=== PATIENT | female | born 1965 | race Caucasian/White ===

== ENCOUNTER 2016-11-25 08:02 | Emergency (ER) | payer OTHER ==
[~2016-11-25] VITALS: Ht 170.2 cm; Wt 90.7 kg
[~2016-11-25 08:02] MED LIST: AMLODIPINE BESYL5 MG PO; EFFEXOR XR75 MG PO; ESTRADIOL0.5 MG PO; LOSARTAN POTAS100 MG PO; NORCO 5-325 TA1 EACH PO; OMEPRAZOLE20 MG PO; TOPROL XL200 MG PO; VENLAFAXINE HCL75 MG PO
--- OUTSIDE RECORDS SUMMARY | 2016-11-25 08:25 | XMS ---
Demographics + + + | Address | [address] | | | [place] [address] | + + + | Preferred Language | Unknown | + + + | Marital Status | Unknown | + + + | Faith Affiliation | Unknown | + + + | Race | Unknown | + + + | Ethnic Group | Unknown | + + + Author + + + | Author | [facility] | + + + | Organization | [facility] | + + + | Address | [address] | | | [place] [address] | + + + | Phone | | + + + Care Team Providers + + + + | Care Time Study Statistician Name | Role | Phone | + + + + Unavailable | Unavailable | + + + + PROBLEMS +---------+ + + +--------+ + + | Type | Condition | ICD9-CM | [id number] | Onset | Condition | SNOMED | | | | Code | Code | Dates | Status | Code | +---------+ + + +--------+ + + | Problem | Hormone | | Z79.890 | | Active | 051208879 | | | replacemen | | | | | | | | t therapy | | | | | | +---------+ + + +--------+ + + | Problem | Screening | Z13.89 | | | Active | 651699149 | | | for | | | | | | | | alcoholism | | | | | | +---------+ + + +--------+ + + | Problem | Hypertensi | I11.9 | | | Active | 53142194 | | | ve | | | | | | | | arterioscl | | | | | | | | erotic | | | | | | | | cardiovasc | | | | | | | | ular | | | | | | | | disease | | | | | | +---------+ + + +--------+ + + | Problem | Depression | | F32.9 | | Active | 237870389 | +---------+ + + +--------+ + + | Problem | Gastroesop | K21.9 | | | Active | 830822526 | | | hageal | | | | | | | | reflux | | | | | | | | disease | | | | | | | | without | | | | | | | | esophagiti | | | | | | | | s | | | | | | +---------+ + + +--------+ + + | Problem | Right leg | S89.91XA | | | Active | 6500553725 | | | injury | | | | | 2150251 | +---------+ + + +--------+ + + | Problem | Essential | I10 | | | Active | 02276296 | | | hypertensi | | | | | | | | on with | | | | | | | | goal blood | | | | | | | | pressure | | | | | | | | less than | | | | | | | | 140/90 | | | | | | +---------+ + + +--------+ + + ALLERGIES Unknown Allergies SOCIAL HISTORY No smoking Hx information available PLAN OF CARE VITAL SIGNS MEDICATIONS Unknown Medications RESULTS No Results PROCEDURES No Known procedures IMMUNIZATIONS No Known Immunizations"
--- OUTSIDE RECORDS SUMMARY | 2016-11-25 08:25 | XMS ---
Demographics + + + | Address | [address] | | | [place] [address] | + + + | Preferred Language | Unknown | + + + | Marital Status | Unknown | + + + | Druze Affiliation | Unknown | + + + | Race | Unknown | + + + | Ethnic Group | Unknown | + + + Author + + + | Author | [facility] | + + + | Organization | [facility] | + + + | Address | [address] | | | [place] [address] | + + + | Phone | | + + + Care Team Providers + + + + | Care Cabinetmaker Apprentice Name | Role | Phone | + + + + Unavailable | Unavailable | + + + + PROBLEMS + + + + + + + + | Type | Condition | ICD9-CM | [id number] | Onset | Condition | SNOMED | | | | Code | Code | Dates | Status | Code | + + + + + + + + | Assessment | Chronic | | G61.81 | Jun, | Active | [id number] | | | inflammato | | | 2016 | | | | | ry | | | | | | | | demyelinat | | | | | | | | ing | | | | | | | | polyneurit | | | | | | | | is | | | | | | + + + + + + + + | Problem | Hormone | | Z79.890 | | Active | 649516617 | | | replacemen | | | | | | | | t therapy | | | | | | + + + + + + + + | Assessment | Hypertensi | I11.9 | | 21 Jun, | Active | 29981520 | | | ve | | | 2016 | | | | | arterioscl | | | | | | | | erotic | | | | | | | | cardiovasc | | | | | | | | ular | | | | | | | | disease | | | | | | + + + + + + + + | Problem | Screening | Z13.89 | | | Active | 695304810 | | | for | | | | | | | | alcoholism | | | | | | + + + + + + + + | Problem | Hypertensi | I11.9 | | | Active | 21461565 | | | ve | | | | | | | | arterioscl | | | | | | | | erotic | | | | | | | | cardiovasc | | | | | | | | ular | | | | | | | | disease | | | | | | + + + + + + + + | Problem | Depression | | F32.9 | | Active | 896813120 | + + + + + + + + | Problem | Gastroesop | K21.9 | | | Active | 395283305 | | | hageal | | | | | | | | reflux | | | | | | | | disease | | | | | | | | without | | | | | | | | esophagiti | | | | | | | | s | | | | | | + + + + + + + + | Problem | Right leg | S89.91XA | | | Active | 3502427904 | | | injury | | | | | 1757802 | + + + + + + + + | Problem | Essential | I10 | | | Active | 66336083 | | | hypertensi | | | | | | | | on with | | | | | | | | goal blood | | | | | | | | pressure | | | | | | | | less than | | | | | | | | 140/90 | | | | | | + + + + + + + + ALLERGIES + + + + +--------+ | Substance | Reaction | Event Type | Date | Status | + + + + +--------+ | Tizanidine HCl | throat itchy, | Drug Allergy | Jun, | Active | | | swelling | | | | + + + + +--------+ | Lisinopril | cough | Drug Allergy | Jun, | Active | + + + + +--------+ | Diclofenac | throat itchy, | Drug Allergy | Jun, | Active | | Sodium | swelling | | | | + + + + +--------+ | Amlodipine | foggy, LE edema | Drug Allergy | Jun, | Active | | Besylate | | | | | + + + + +--------+ | tramadol | heart | Non Drug | Jun, | Active | | | palpitations | Allergy | | | + + + + +--------+ SOCIAL HISTORY No smoking Hx information available PLAN OF CARE VITAL SIGNS + + + + | Height | 67 in | 2016-07-14 | + + + + | Weight | 230.7 lbs | 2016-07-14 | + + + + | BMI | 36.13 kg/m2 | 2016-07-14 | + + + + | Heart Rate | 82 /min | 2016-07-14 | + + + + | Blood pressure systolic | 160 mm Hg | 2016-07-14 | + + + + | Blood pressure diastolic | 96 mm Hg | 2016-07-14 | + + + + MEDICATIONS + + + + + + + +--------+ | Medicati | Instruct | Dosage | Frequenc | Start | End Date | Duration | Status | | on | ions | | y | Date | | | | + + + + + + + +--------+ | Losartan | Orally | 1 tablet | 24h | 08 Sep, | | 30 | Active | | | Once a | | | 2016 | | day(s) | | | Potassiu | day | | | | | | | | m 100 MG | | | | | | | | + + + + + + + +--------+ | Gabapent | Orally | 1 | | 21 Jun, | | 30 days | Active | | in 100 | once a | capsule | | 2016 | | | | | MG | day at | | | | | | | | | night | | | | | | | + + + + + + + +--------+ | Omeprazo | Orally | 1 | 24h | | | 30 days | Active | | le 20 MG | Once a | capsule | | | | | | | | day | | | | | | | + + + + + + + +--------+ | Estrace | Orally | 1 tablet | 24h | Mar, | | 30 | Active | | 0.5 MG | Once a | | | 2016 | | day(s) | | | | day | | | | | | | + + + + + + + +--------+ | Venlafax | Orally | 1 tablet | 24h | | | | Active | | ine HCl | Once a | | | | | | | | 75 MG | day | | | | | | | + + + + + + + +--------+ | Toprol | Orally | 1 tablet | 24h | | | | Active | | XL 200 | Once a | | | | | | | | MG | day | | | | | | | + + + + + + + +--------+ RESULTS No Results PROCEDURES + + + + + | Procedure | Date Ordered | Related Diagnosis | Body Site | + + + + + | Est Level III | July 14, 2016 | | | | Intermediate | | | | + + + + + IMMUNIZATIONS No Known Immunizations"
--- OUTSIDE RECORDS SUMMARY | 2016-11-25 08:25 | XMS ---
Demographics + + + | Address | [address] | | | [place] [address] | + + + | Preferred Language | Unknown | + + + | Marital Status | Unknown | + + + | Gnosticism Affiliation | Unknown | + + + | Race | Unknown | + + + | Ethnic Group | Unknown | + + + Author + + + | Author | [facility] | + + + | Organization | [facility] | + + + | Address | [address] | | | [place] [address] | + + + | Phone | | + + + Care Team Providers + + + + | Care Agricultural Equipment Design Engineer Name | Role | Phone | + + + + Unavailable | Unavailable | + + + + PROBLEMS +---------+ + + +--------+ + + | Type | Condition | ICD9-CM | PCH55-[id number] | Onset | Condition | SNOMED | | | | Code | Code | Dates | Status | Code | +---------+ + + +--------+ + + | Problem | Hormone | | Z79.890 | | Active | 677970763 | | | replacemen | | | | | | | | t therapy | | | | | | +---------+ + + +--------+ + + | Problem | Screening | Z13.89 | | | Active | 670295241 | | | for | | | | | | | | alcoholism | | | | | | +---------+ + + +--------+ + + | Problem | Hypertensi | I11.9 | | | Active | 09453892 | | | ve | | | [...] | | F32.9 | | Active | 072162434 | +---------+ + + +--------+ + + | Problem | Gastroesop | K21.9 | | | Active | 792257152 | | | hageal | | | [...] | S89.91XA | | | Active | 6468567203 | | | injury | | | | | 9838332 | +---------+ + + +--------+ + + | Problem | Essential | I10 | | | Active | 53906102 | | | hypertensi | | | [...] +---------+ + + +--------+ + + ALLERGIES + + + + +--------+ | Substance | Reaction | Event Type | Date | Status | + + + + +--------+ | Tizanidine HCl | throat itchy, | Drug Allergy | Oct, | Active | | | swelling | | | | + + + + +--------+ | Losartan | foggy | Drug Allergy | Oct, | Active | | Potassium | | | | | + + + + +--------+ | Lisinopril | cough | Drug Allergy | Oct, | Active | + + + + +--------+ | Diclofenac | throat itchy, | Drug Allergy | Oct, | Active | | Sodium | swelling | | | | + + + + +--------+ | Amlodipine | VERONICA elizabeth edema | Drug Allergy | Oct, | Active | | Besylate | | | | | + + + + +--------+ | tramadol | heart | Non Drug | Oct, | Active | | | palpitations | Allergy | | | + + + + +--------+ SOCIAL HISTORY No smoking Hx information available PLAN OF CARE + +---------+ | Activity | Details | + +---------+ +---+ | | +---+ + + + | Follow Up | has f/u Reason:null | + + + VITAL SIGNS + + + + | Height | 67 in | 2016-11-10 | + + + + | Weight | 226.7 lbs | 2016-11-10 | + + + + | BMI | 35.50 kg/m2 | 2016-11-10 | + + + + | Heart Rate | 70 /min | 2016-11-10 | + + + + | Blood pressure systolic | 146 mm Hg | 2016-11-10 | + + + + | Blood pressure diastolic | 86 mm Hg | 2016-11-10 | + + + + MEDICATIONS + [...] | 1 | 24h | | | | Active | | le 20 MG | Once a | capsule | | | | | | | | day | | | | | | | + + + + + + + +--------+ | Duloxeti | Orally | 1 | 24h | 18 Oct, | | 30 | Active | | ne HCl | Once a | capsule | | 2016 | | day(s) | | | 30 MG | day | daily | | | | | | | | | for a | | | | | | | | | week | | | | | | | | | then two | | | | | | | | | | | | | | | | | | capsules | | | | | | | | | daily | | | | | | + + + + + + + +--------+ | Metoprol | | TAKE ONE | | | | 30 | Active | | ol | | TABLET | | | | | | | Succinat | | BY MOUTH | | | | | | | e ER | | ONCE | | | | | | | 200MG | | DAILY | | | | | | + + + + + + + +--------+ | Gabapent | Orally | 1 tablet | | | | 30 days | Active | | in 600 | once a | | | | | | [...] + + | Est Level III | Nov 10, 2016 | | | | Intermediate | | | | + + + + + IMMUNIZATIONS No Known Immunizations"
--- OUTSIDE RECORDS SUMMARY | 2016-11-25 08:25 | XMS ---
Demographics + + + | Address | [address] | | | [place] [address] | + + + | Preferred Language | Unknown | + + + | Marital Status | Unknown | + + + | Uatsdin Affiliation | Unknown | + + + | Race | Unknown | + + + | Ethnic Group | Unknown | + + + Author + + + | Author | [facility] | + + + | Organization | [facility] | + + + | Address | [address] | | | [place] [address] | + + + | Phone | | + + + Care Team Providers + + + + | Care Preschool Special Education Teacher Name | Role | Phone | + + + + Unavailable | Unavailable | + + + + PROBLEMS +---------+ + + +--------+ + + | Type | Condition | ICD9-CM | [id number] | Onset | Condition | SNOMED | | | | Code | Code | Dates | Status | Code | +---------+ + + +--------+ + + | Problem | Hormone | | Z79.890 | | Active | 273498264 | | | replacemen | | | | | | | | t therapy | | | | | | +---------+ + + +--------+ + + | Problem | Screening | Z13.89 | | | Active | 395812393 | | | for | | | | | | | | alcoholism | | | | | | +---------+ + + +--------+ + + | Problem | Hypertensi | I11.9 | | | Active | 19525379 | | | ve | | | [...] | | F32.9 | | Active | 909361750 | +---------+ + + +--------+ + + | Problem | Gastroesop | K21.9 | | | Active | 323257812 | | | hageal | | | [...] | S89.91XA | | | Active | 2321754996 | | | injury | | | | | 6351473 | +---------+ + + +--------+ + + | Problem | Essential | I10 | | | Active | 80493065 | | | hypertensi | | | [...] | throat itchy, | Drug Allergy | Aug, | Active | | | swelling | | | | + + + + +--------+ | Losartan | foggy | Drug Allergy | Aug, | Active | | Potassium | | | | | + + + + +--------+ | Lisinopril | cough | Drug Allergy | Aug, | Active | + + + + +--------+ | Diclofenac | throat itchy, | Drug Allergy | Aug, | Active | | Sodium | swelling | | | | + + + + +--------+ | Amlodipine | VERONICA elizabeth edema | Drug Allergy | Aug, | Active | | Besylate | | | | | + + + + +--------+ | tramadol | heart | Non Drug | Aug, | Active | | | palpitations | Allergy | | | + + + + +--------+ SOCIAL HISTORY No smoking Hx information available PLAN OF CARE + +---------+ | Activity | Details | + +---------+ +---+ | | +---+ + + + | Follow Up | 3 Months Reason:null | + + + VITAL SIGNS + + + + | Height | 67 in | 2016-09-21 | + + + + | Weight | 228.9 lbs | 2016-09-21 | + + + + | BMI | 35.85 kg/m2 | 2016-09-21 | + + + + | Temperature | 98.0 degrees Fahrenheit | 2016-09-21 | + + + + | Heart Rate | 91 /min | 2016-09-21 | + + + + | Blood pressure systolic | 148 mm Hg | 2016-09-21 | + + + + | Blood pressure diastolic | 105 mm Hg | 2016-09-21 | + + + + MEDICATIONS + + + + +--------+ + +--------+ | Medicati | Instruct | Dosage | Frequenc | Start | End Date | Duration | Status | | on | ions | | y | Date | | | | + + + + +--------+ + +--------+ | Toprol | Orally | 1 tablet | 24h | | | | Active | | XL 200 | Once a | | | | | | | | MG | day | | | | | | | + + + + +--------+ + +--------+ | Gabapent | Orally | 1 | | | | 30 days | Active | | in 300 | once a | capsule | | | | | | | MG | day at | | | | | | | | | night | | | | | | | + + + + +--------+ + +--------+ | Venlafax | Orally | 1 tablet | 24h | | | | Active | | ine HCl | Once a | | | | | | | | 75 MG | day | | | | | | | + + + + +--------+ + +--------+ | Omeprazo | Orally | 1 | 24h | | | | Active | | le 20 MG | Once a | capsule | | | | | | | | day | | | | | | | + + + + +--------+ + +--------+ RESULTS No Results PROCEDURES + + + + + | Procedure | Date Ordered | Related Diagnosis | Body Site | + + + + + | Est Level III | September 21, 2016 | | | | Intermediate | | | | + + + + + IMMUNIZATIONS No Known Immunizations"
--- OUTSIDE RECORDS SUMMARY | 2016-11-25 08:25 | XMS ---
Demographics + + + | Address | [address] | | | [place] [address] | + + + | Preferred Language | Unknown | + + + | Marital Status | Unknown | + + + | Mandaeism Affiliation | Unknown | + + + | Race | Unknown | + + + | Ethnic Group | Unknown | + + + Author + + + | Author | [facility] | + + + | Organization | [facility] | + + + | Address | [address] | | | [place] [address] | + + + | Phone | | + + + Care Team Providers + + + + | Care Manager Rn Case Name | Role | Phone | + + + + Unavailable | Unavailable | + + + + PROBLEMS +---------+ + + +--------+ + + | Type | Condition | ICD9-CM | [id number] | Onset | Condition | SNOMED | | | | Code | Code | Dates | Status | Code | +---------+ + + +--------+ + + | Problem | Hormone | | Z79.890 | | Active | 538635627 | | | replacemen | | | | | | | | t therapy | | | | | | +---------+ + + +--------+ + + | Problem | Screening | Z13.89 | | | Active | 534136366 | | | for | | | | | | | | alcoholism | | | | | | +---------+ + + +--------+ + + | Problem | Hypertensi | I11.9 | | | Active | 84312062 | | | ve | | | [...] | | F32.9 | | Active | 017247161 | +---------+ + + +--------+ + + | Problem | Gastroesop | K21.9 | | | Active | 549111320 | | | hageal | | | [...] | S89.91XA | | | Active | 1017922714 | | | injury | | | | | 6738564 | +---------+ + + +--------+ + + | Problem | Essential | I10 | | | Active | 99316178 | | | hypertensi | | | [...] | throat itchy, | Drug Allergy | July, | Active | | | swelling | | | | + + + + +--------+ | Losartan | foggy | Drug Allergy | July, | Active | | Potassium | | | | | + + + + +--------+ | Lisinopril | cough | Drug Allergy | July, | Active | + + + + +--------+ | Diclofenac | throat itchy, | Drug Allergy | July, | Active | | Sodium | swelling | | | | + + + + +--------+ | Amlodipine | VERONICA elizabeth edema | Drug Allergy | July, | Active | | Besylate | | | | | + + + + +--------+ | tramadol | heart | Non Drug | July, | Active | | | palpitations | Allergy | | | + + + + +--------+ SOCIAL HISTORY No smoking Hx information available PLAN OF CARE + +---------+ | Activity | Details | + +---------+ +---+ | | +---+ + + + | Follow Up | 4 Weeks Reason:null | + + + VITAL SIGNS + + + + | Height | 67 in | 2016-08-18 | + + + + | Weight | 222.7 lbs | 2016-08-18 | + + + + | BMI | 34.88 kg/m2 | 2016-08-18 | + + + + | Heart Rate | 87 /min | 2016-08-18 | + + + + | Blood pressure systolic | 155 mm Hg | 2016-08-18 | + + + + | Blood pressure diastolic | 99 mm Hg | 2016-08-18 | + + + + MEDICATIONS + [...] + + | Est Level III | August 18, 2016 | | | | Intermediate | | | | + + + + + IMMUNIZATIONS No Known Immunizations"
[2016-11-25] MEDS ORDERED: OXYCODONE HCL5 M1 PO (09:33)
[2016-11-25] MEDS ORDERED: IBUPROFEN800 MG PO (09:33)
[2016-11-25] MEDS ORDERED: ZOFRAN ODT4 MG SL (09:33)
== END 2016-11-25 09:50 | disposition home or self-care (01) ==
LOC: ED 08:02
DX: S93.401A Sprain of unspecified ligament of right ankle, initial encounter (principal); I10 Essential (primary) hypertension; Z87.891 Personal history of nicotine dependence; Z90.710 Acquired absence of both cervix and uterus; Z88.5 Allergy status to narcotic agent; Z79.899 Other long term (current) drug therapy; W18.30XA Fall on same level, unspecified, initial encounter
CPT/HCPCS: 73610; 99283

== ENCOUNTER 2017-05-17 07:50 | Day surgery (SDC) | payer OTHER ==
[~2017-05-17] VITALS: Ht 170.2 cm; Wt 81.7 kg
[~2017-05-17 07:50] MED LIST changes: +GABAPENTIN600 MG PO; +IBUPROFEN800 MG PO; +OXYCODONE HCL5 M1 PO; +ZOFRAN ODT4 MG SL
[2017-05-17] MEDS ORDERED: DULOXETINE HCL60 MG PO (08:16)
--- NOTE | 2017-05-17 11:14 | NUR ---
05/17/17 1114 Antoinette Valdez 1100 PT ARRIVED WITH ORAL AIRWAY IN PLACE, RESP EVEN AND UNLABORED PT REACTIVE. REPORT FROM CUSTOMER SUPPORT EXECUTIVE.
--- NOTE | 2017-05-17 11:50 | NUR ---
ICED WATER AND PUDDING GIVEN. SPOUSE @ BS. CALL LIGHT W/IN REACH. PT DENIES ADD'L NEEDS.
[2017-05-17] MEDS ORDERED: NORCO 10-325 T1 EACH PO (12:30)
--- NOTE | 2017-05-17 14:49 | NUR ---
1245: PATIENT DENIED PAIN. VS CHECKED. IV SITE WNL. RIGHT ANKLE ELEVATED ON PILLOW. ICE PACK TO RIGHT ANKLE. C/O NUMBNESS IN RIGHT TOES. ABLE TO WIGGLE RIGHT TOES. RIGHT TOES WARM AND PINK. PATIENT STATES READY TO GO HOME. 1300: IV DC'D WNL, TIP INTACT. DISCHARGE INSTRUCTIONS GIVEN TO PATIENT AND . PATIENT ASSISTED OOB. ASSISTED PATIENT TO GET DRESSED. PATIENT DISCHARGED TO HOME WITH VIA WHEELCHAIR.
--- NOTE | 2017-05-24 07:09 | OR ---
[facility] [address], [place] [address] Signed DATE OF OPERATION: 05/17/2017 SURGEON: Clari Smith MD PREOPERATIVE DIAGNOSIS: Osteochondral lesion medial talus, right. POSTOPERATIVE DIAGNOSIS: Osteochondral lesion medial talus, right. PROCEDURE: Ankle arthroscopy with debridement of osteochondral lesion and microfracture. ANESTHESIA: General. SPECIMENS AND COMPLICATIONS: There were no specimens or complications. TOURNIQUET TIME: About 40 minutes. WHAT WAS DONE: The patient was taken to the operating room. After anesthesia was induced and airway secured, the patient was positioned, prepped and draped in a routine sterile fashion. We outlined the vascular markings of neurovascular bundle about the ankle with a skin marking pen and then the leg was exsanguinated with an Esmarch bandage. Pneumatic tourniquet was then inflated to 300 mmHg pressure on the upper thigh. The patient was then placed in noninvasive distraction (Arthrex) and the ankle was distracted. Markings medially were used as a guide and we passed an 18-gauge needle anteromedial directly into the ankle joint. We then insufflated the ankle with about 15 mL of saline. We then made a small anteromedial portal incising only the skin and then using a blunt trocar technique to enter the ankle joint, which was confirmed by the free flow of fluid back out of the cannula. We then assembled the arthroscope and gently irrigated the ankle. Then using transillumination and being mindful of the vascular markings, we had previously outlined, an anterolateral portal was created again incising only the skin and using a blunt trocar technique. We then introduced a small probe. The dome of the talus was completely unremarkable in the midportion and laterally. The tibial plafond was similarly unremarkable. After doing the diagnostic arthroscopy, there was a fair amount of synovitis in the anterolateral gutter and over the anterior aspect of the Electronically Signed By: CLARI SMITH MD 05/24/17 0709 PATIENT NAME: DAVID PANDEY OPERATIVE REPORT DATE OF : 69 REPORT #: [id number] PHYSICIAN: CLARI SMITH MD PCP: ANALY MONROE DO REPORT IS CONFIDENTIAL AND NOT TO BE RELEASED WITHOUT AUTHORIZATION [facility] [address], [place] [address] Signed ankle joint. We did insert a motorized shaver, and do a limited synovectomy. There also appeared to be a [place] lesion anterolaterally and this was also removed with the motorized shaver. We then switched the arthroscopy cannula to the anterolateral portal and introduced a probe anteromedially. We were able to identify the area of the osteochondral lesion and indeed there was a large cartilaginous flap that we could invert and was caught in the ankle joint itself. We then used a small curette to finish this flap tear and then introduced the motorized shaver to morselize and remove the cartilage fragments. We then used an angled pick to microfracture the base of the osteochondral lesion. The ankle joint was then copiously irrigated and drained. The portals were closed and a sterile dressing applied. The patient was awakened to recovery room where she arrived in stable condition. Counts were correct and antibiotic protocols were followed. Clari Smith MD WFB/MODL /[id number] Copies: ~ Electronically Signed By: CLARI SMITH MD 05/24/17 0709 PATIENT NAME: DAVID PANDEY OPERATIVE REPORT DATE OF : 69 REPORT #: [id number] PHYSICIAN: CLARI SMITH MD PCP: ANALY MONROE DO REPORT IS CONFIDENTIAL AND NOT TO BE RELEASED WITHOUT AUTHORIZATION
== END 2017-05-17 13:00 | disposition home or self-care (01) ==
LOC: OPS 07:50 → DS 07:50 → OPS 09:30
PROVIDERS: Orthopaedic Surgery
PROC: 0SBF4ZZ Excision of Right Ankle Joint, Percutaneous Endoscopic Approach (ICD-10-PCS; principal; 2017-05-17 09:30)
DX: M93.271 Osteochondritis dissecans, right ankle and joints of right foot (principal); M65.871 Other synovitis and tenosynovitis, right ankle and foot; I10 Essential (primary) hypertension; Z23 Encounter for immunization; Z88.8 Allergy status to other drugs, medicaments and biological substances; Z79.899 Other long term (current) drug therapy
CPT/HCPCS: 01480; 90674; J0690; J1100; J1885; J2250; J2405; J2704; J3010; J7120

== ENCOUNTER 2017-11-17 18:40 | Emergency (ER) | payer OTHER ==
[~2017-11-17] VITALS: Ht 170.2 cm; Wt 81.6 kg
[~2017-11-17 18:40] MED LIST changes: +DULOXETINE HCL60 MG PO; +NORCO 10-325 T1 EACH PO
== END 2017-11-17 21:37 | disposition home or self-care (01) ==
LOC: ED 18:40
DX: F32.9 Major depressive disorder, single episode, unspecified (principal); I10 Essential (primary) hypertension; Z88.5 Allergy status to narcotic agent; Z79.899 Other long term (current) drug therapy
CPT/HCPCS: 80053; 80176; 81001; 84443; 85025; 99283; G0480

== ENCOUNTER 2022-03-06 15:30 | Emergency (ER) | payer OTHER ==
[~2022-03-06] VITALS: Ht 170.2 cm; Wt 87.1 kg
--- OUTSIDE RECORDS SUMMARY | 2022-03-06 17:03 | XMS ---
PreManage Notification: DAVID PANDEY Security Track Helper Events No recent Security Events currently on file CRITERIA MET - [facility] - 2 Visits in 30 Days - Group Notification - [facility] CARE PROVIDERS There are no care providers on record at this time. Deni has no Care Guidelines for this patient. Danica VISIT COUNT (12 MO.) 3 [facility] [place] [facility] NOTE: Visits indicate total known visits. ED/C VISIT TRACKING (12 MO.) 03/06/2022 15:31 [facility] [place] TYPE: Emergency COMPLAINT: - SOB,DIZZY,CHILLS 02/27/2022 16:29 [facility] [place] TYPE: Emergency COMPLAINT: - SOB, DIZZINESS, UPPER ABD PRESSURE, COUGHING BLOOD 02/19/2022 16:37 [facility] [place] TYPE: Emergency COMPLAINT: - MEDICAL CLEARANCE INPATIENT VISIT TRACKING (12 MO.) No inpatient visits to display in this time frame [email or web address]
== END 2022-03-06 19:20 | disposition home or self-care (01) ==
LOC: ED 15:30
DX: U07.1 COVID-19 (principal); I10 Essential (primary) hypertension; Z88.5 Allergy status to narcotic agent; Z79.899 Other long term (current) drug therapy
CPT/HCPCS: 87502; 99283; C9803; U0003

== ENCOUNTER 2023-04-18 06:12 | Day surgery (SDC) | payer OTHER ==
[2023-04-12 10:11] VITALS: BP 140/99
[~2023-04-18] VITALS: Ht 170.2 cm; Wt 90.9 kg
[~2023-04-18 06:12] MED LIST changes: +LYRICA100 MG PO; +PROZAC10 MG PO; +REMERON15 M1 PO
[2023-04-18 06:24] VITALS: BP 139/70
[2023-04-18] MEDS ORDERED: WOMEN'S DAILY1 EACH PO (06:27)
[2023-04-18 07:36] VITALS: BP 159/78
--- NOTE | 2023-04-18 08:08 | NUR ---
04/18/23 0808 Sylvain Nation PATIENT ARRIVED AT 0800. PATIENT AWAKE AND TALKING. O2 IS 93% ON ROOM AIR. PRIOR TO ARRIVAL PATIENT WAS 94% ON ROOM AIR WHEN MONITORED IN THE ENDO ROOM. PATIENT COMPLAINS OF SLIGHT CRAMPING. ENCOURAGED TO PASS GAS AT THIS TIME. DENIES NAUSEA.
[2023-04-18 08:43] VITALS: BP 111/80
--- NOTE | 2023-04-18 10:09 | OR ---
[facility] [address] [place], [place] [address] Signed DATE OF OPERATION: 04/18/2023 SURGEON: Dayan Leon MD PREOPERATIVE DIAGNOSES: 1. Diarrhea with a history of treated microscopic lymphocytic colitis. 2. Father with colon cancer in his 60s. POSTOPERATIVE DIAGNOSES: 1. Minimal to moderate pandiverticulosis. 2. 3 mm internal anal skin tag x1. PROCEDURE: Colonoscopy with random cold biopsy. ESTIMATED BLOOD LOSS: None. INDICATIONS: Dori is a 58-year-old obese female with a history of polysubstance abuse in the past along with anxiety and schizoaffective disorder. She is known to have some alcohol-related polyneuropathy as well as being prediabetic. She was having diarrhea in [address] Ag Medina performed her upper and lower endoscopy. She had microscopic lymphocytic colitis. She responded well to her treatment. About a year ago, she went through drug rehab. She has now been off the alcohol and methamphetamines. She has been helping a lot at her faith. She has been under a lot of stress. She said the diarrhea returned several months ago. She also knows that her father had colon cancer in his 60s. Otherwise, no family history of inflammatory bowel disease. She was asked to see me as a local general surgeon to have colonoscopy and multiple biopsies. I met with Dori in the office. I gave her a pamphlet on colonoscopy. We had reviewed the nature of the test. There is risk including, but not limited to gas bloating, crampy abdominal pain, bleeding, perforation requiring surgery, and missed diagnosis. We also reviewed the written instructions for the bowel prep line by line. Given her body mass index, a very full round face with a heavy neck, chest, and abdomen along with her significant medical issues, we asked that she have monitored anesthesia care with propofol infusion. That proved to be a jordan decision as our anesthesia provider was able to apply constant airway management. She had expressed understanding and wished to proceed. DESCRIPTION OF PROCEDURE: Electronically Signed By: DAYAN LEON MD 04/18/23 1009 PATIENT NAME: DORI PANDEY OPERATIVE REPORT DATE OF : 69 REPORT #: [id number] PHYSICIAN: DAYAN LEON MD PCP: CLEVELAND SHER PA-C REPORT IS CONFIDENTIAL AND NOT TO BE RELEASED WITHOUT AUTHORIZATION [facility] [address] [place] [id number] Signed Dori was taken into our endoscopy suite and placed in the left lateral decubitus position. She was given monitored anesthesia care with propofol infusion per our nurse corrosion control engineer. A digital rectal exam was performed. This was unremarkable. There were no external hemorrhoids. She has good sphincter tone. There were no masses. The adult colonoscope was introduced and advanced all around into the cecum under direct visualization of the camera. She did need some extra propofol. She needed some abdominal compression as well. She needed constant airway management. Her prep was good. We could easily see the appendiceal orifice and ileocecal valve. The scope was then slowly withdrawn. We took pictures throughout for photodocumentation. She has pandiverticulosis. The diverticula are moderate in size, few in number and scattered about. Her entire colon appeared quite healthy without any inflammatory changes. We went ahead and took random cold biopsies in the cecum, right colon, transverse colon, left colon, sigmoid colon, and rectum. There were no polyps. Once in the rectum, the scope was retroflexed. She had one tiny internal anal skin tag. Very little if any internal hemorrhoid tissue. After this, the gas was suctioned out and the colonoscope removed. Dori tolerated the procedure quite well. RECOMMENDATIONS: I will see Dori back in my office in 7 to 14 days to review her results. Dayan Leon MD ALB/MODL /[id number] cc: SHIRIN Alamo MD Copies: DAYAN LEON MD ~ Electronically Signed By: DAYAN LEON MD 04/18/23 1009 PATIENT NAME: DORI PANDEY OPERATIVE REPORT DATE OF : 69 REPORT #: [id number] PHYSICIAN: DAYAN LEON MD PCP: CLEVELAND SHER PA-C REPORT IS CONFIDENTIAL AND NOT TO BE RELEASED WITHOUT AUTHORIZATION
--- NOTE | 2023-04-20 11:27 | PATH ---
[facility] [address] [facility] [place], [place] [address] Signed SPECIMEN(S): A RANDOM CECUM COLON BIOPSY SPECIMEN(S): B RANDOM ASCENDING/RIGHT COLON BIOPSY SPECIMEN(S): C RANDOM TRANSVERSE COLON BIOPSY SPECIMEN(S): D RANDOM DESCENDING/LEFT COLON BIOPSY SPECIMEN(S): E RANDOM SIGMOID COLON BIOPSY SPECIMEN(S): F RANDOM RECTUM BIOPSY SPECIMEN SOURCE: A. RANDOM CECUM COLON BIOPSY B. RANDOM ASCENDING/RIGHT COLON BIOPSY C. RANDOM TRANSVERSE COLON BIOPSY D. RANDOM DESCENDING/LEFT COLON BIOPSY E. RANDOM SIGMOID COLON BIOPSY F. RANDOM RECTUM BIOPSY CLINICAL HISTORY: Diarrhea with microscopic colitis FINAL PATHOLOGIC DIAGNOSIS: A. Cecum, biopsy: - Colonic mucosa with no significant pathologic changes B. Colon, ascending/right, biopsy: - Colonic mucosa with no significant pathologic changes C. Colon, transverse, biopsy: - Colonic mucosa with no significant pathologic changes D. Colon, descending/left, biopsy: - Colonic mucosa with no significant pathologic changes E. Colon, sigmoid, biopsy: - Colonic mucosa with no significant pathologic changes F. Rectum, biopsy: - Colonic mucosa with no significant pathologic changes BRP MICROSCOPIC EXAMINATION: Histologic sections of all submitted blocks are examined by light microscopy. These findings, together with the gross examination, support the pathologic diagnosis. GROSS DESCRIPTION: A. The specimen, labeled and designated "Oniel Pandey, " and designated on the requisition "colon, cecum random biopsy," is received in formalin and consists PATIENT NAME: DAVID PANDEY PATHOLOGY DATE OF : 69 REPORT #: [id number] PHYSICIAN: RAIZA PATHOLOGY PCP: CLEVELAND SHER PA-C REPORT IS CONFIDENTIAL AND NOT TO BE RELEASED WITHOUT AUTHORIZATION [facility] [address] [place], [place] [address] Signed of one johnson soft tissue fragment measuring 0.4 cm, the specimen is submitted entirely in (A1). B. The specimen, labeled and designated "Raul, T, " and designated on the requisition "colon, ascending/right random biopsy," is received in formalin and consists of one johnson soft tissue fragment measuring 0.3 cm, the specimen is submitted entirely in (B1). C. The specimen, labeled and designated "Raul, T, " and designated on the requisition "colon, transverse random biopsy," is received in formalin and consists of one johnson soft tissue fragment measuring 0.4 cm, the specimen is submitted entirely in (C1). D. The specimen, labeled and designated "Raul, T, " and designated on the requisition "colon, descending/left random biopsy," is received in formalin and consists of one johnson soft tissue fragment measuring 0.3 cm, the specimen is submitted entirely no summary E. The specimen, labeled and designated "Raul, T, " and designated on the requisition "colon, sigmoid random biopsy," is received in formalin and consists of one johnson soft tissue fragments measuring 0.4 cm, the specimen is submitted entirely in (E1). F. The specimen, labeled and designated "Raul, T, " and designated on the requisition "colon, rectum random biopsy," is received in formalin and consists of one johnson soft tissue fragment measuring 0.4 cm, the specimen is submitted entirely in (F1). MMA (under the direct supervision of a pathologist) The Gross Description was prepared using a voice recognition system. The report was reviewed for accuracy; however, sound-alike word errors, addition and/or deletions may occur. If there is any question about this report, please contact Client Services. ADDITIONAL NOTES: Immunohistochemical and/or in situ hybridization studies if performed in this case included appropriate positive controls that reacted as expected. This test was developed and its performance characteristics determined by [facility]. It has not been cleared or approved by the U.S. Food and Drug Administration. The FDA has determined that such clearance or approval is not necessary. This test is used for clinical purposes. It should not be regarded as investigational or for research. [facility] is certified under the Clinical Laboratory Improvement Amendments of 1988 (CLIA) as qualified to perform high complexity clinical laboratory testing. PATIENT NAME: DAVID PANDEY PATHOLOGY DATE OF : 69 REPORT #: [id number] PHYSICIAN: RAIZA GENAO PCP: CLEVELAND SHER PA-C REPORT IS CONFIDENTIAL AND NOT TO BE RELEASED WITHOUT AUTHORIZATION [facility] [address] [place], [place] [address] Signed PERFORMING LABORATORY: Technical component was performed by [facility], [address] [place] [address] (CLIA# [id number]). Professional interpretation was performed by [facility], [address] [place] [address] (CLIA#:[id number]). Diagnostician: Xiang Siddiqi MD Pathologist Electronically Signed 04/20/2023 Copies: ~ PATIENT NAME: DAVID PANDEY PATHOLOGY DATE OF : 69 REPORT #: [id number] PHYSICIAN: RAIZA PATHOLOGY PCP: CLEVELAND SHER PA-C REPORT IS CONFIDENTIAL AND NOT TO BE RELEASED WITHOUT AUTHORIZATION
== END 2023-04-18 08:40 | disposition home or self-care (01) ==
LOC: DS 06:12
PROVIDERS: ATTEND Colon & Rectal Surgery
PROC: 0DBL8ZX Excision of Transverse Colon, Via Natural or Artificial Opening Endoscopic, Diagnostic (ICD-10-PCS; 2023-04-18)
PROC: 0DBN8ZX Excision of Sigmoid Colon, Via Natural or Artificial Opening Endoscopic, Diagnostic (ICD-10-PCS; 2023-04-18)
PROC: 0DBP8ZX Excision of Rectum, Via Natural or Artificial Opening Endoscopic, Diagnostic (ICD-10-PCS; 2023-04-18)
PROC: 0DBF8ZX Excision of Right Large Intestine, Via Natural or Artificial Opening Endoscopic, Diagnostic (ICD-10-PCS; 2023-04-18)
PROC: 0DBG8ZX Excision of Left Large Intestine, Via Natural or Artificial Opening Endoscopic, Diagnostic (ICD-10-PCS; 2023-04-18)
PROC: 0DBH8ZX Excision of Cecum, Via Natural or Artificial Opening Endoscopic, Diagnostic (ICD-10-PCS; principal; 2023-04-18 07:30)
DX: K52.839 Microscopic colitis, unspecified (principal); R19.7 Diarrhea, unspecified; K64.8 Other hemorrhoids; K57.30 Diverticulosis of large intestine without perforation or abscess without bleeding; I10 Essential (primary) hypertension; F25.1 Schizoaffective disorder, depressive type; G62.9 Polyneuropathy, unspecified; E78.5 Hyperlipidemia, unspecified; R73.03 Prediabetes; E66.9 Obesity, unspecified; F32.9 Major depressive disorder, single episode, unspecified; Z68.38 Body mass index [BMI] 38.0-38.9, adult; Z80.0 Family history of malignant neoplasm of digestive organs; Z87.898 Personal history of other specified conditions; Z79.899 Other long term (current) drug therapy
CPT/HCPCS: 00811; J2001; J2704; J3010; J7121

== ENCOUNTER 2024-06-20 09:45 | Emergency (ER) | payer BC, OTHER ==
[~2024-06-20] VITALS: Ht 170.2 cm; Wt 109.0 kg
[~2024-06-20 09:45] MED LIST changes: -LYRICA100 MG PO; +LYRICA150 MG PO; -PROZAC10 MG PO; +PROZAC20 MG PO; +WOMEN'S DAILY1 EACH PO
--- OUTSIDE RECORDS SUMMARY | 2024-06-20 09:52 | XMS ---
PreManage Notification: DAVID VELASQUEZ Security Assistant Counsel Events No recent Security Events currently on file CRITERIA MET - Group Notification CARE PROVIDERS -, [facility] Dentist: [employer] Current [place] PHONE: [phone] -[facility]- Dentist: [employer] Operator Current [facility] PHONE: [phone] [facility]: [facility] Current [facility] PHONE: [phone] ANALY MONROE [facility] Current PHONE: Unknown CARMEN GOODEN [facility] Current PHONE: Unknown Deni has no Care Guidelines for this patient. Danica VISIT COUNT (12 MO.) 1 TIEN Osman TOTAL 1 NOTE: Visits indicate total known visits. ED/UCC VISIT TRACKING (12 MO.) 06/20/2024 09:45 TIEN Carl OR TYPE: Emergency COMPLAINT: - OD ACCIDENTAL INPATIENT VISIT TRACKING (12 MO.) No inpatient visits to display in this time frame [id number]
[2024-06-20] MEDS ORDERED: MOUNJARO5 MG/0.5 M SUB-Q (10:56)
[2024-06-20 14:51] VITALS: BP 157/101
--- NOTE | 2024-06-20 16:00 | EKG ---
[facility] [address] [facility] [place] [address] Signed Normal sinus rhythm Low voltage QRS Cannot rule out Inferior infarct , age undetermined Abnormal ECG Confirmed by Ailyn Ochoa MD () on 06/20/2024 3:59:54 PM Electronically Signed By: AILNY OCHOA MD 06/20/24 1600 PATIENT NAME: DAVID VELASQUEZ Electrocardiogram DATE OF : 69 PHYSICIAN: AILYN OCHOA MD REPORT #: [id number] REPORT IS CONFIDENTIAL AND NOT TO BE RELEASED WITHOUT AUTHORIZATION
== END 2024-06-20 14:51 | disposition home or self-care (01) ==
LOC: ED 09:45
DX: T42.71XA Poisoning by unspecified antiepileptic and sedative-hypnotic drugs, accidental (unintentional), initial encounter (principal); I10 Essential (primary) hypertension; Z79.899 Other long term (current) drug therapy; Z88.8 Allergy status to other drugs, medicaments and biological substances; Z88.5 Allergy status to narcotic agent
CPT/HCPCS: 93005; 93010; 99284